=== PATIENT | male | born 1990 | race African-American/Black ===

== ENCOUNTER 2016-09-22 22:31 | Emergency (ER) | payer SELFPAY ==
[~2016-09-22] VITALS: Ht 165.1 cm; Wt 49.9 kg
[2016-09-22 22:41] VITALS: BP 109/74; PULSE 89; RESP 16; TEMP 98.2; O2SAT 97
[2016-09-22] MEDS ORDERED: AZITHROMYCIN PWD FOR SUSP 1 GM PACKET PO ONE (23:15)
[2016-09-22] MEDS ORDERED: LIDOCAINE HCL 1% 50 ML VIAL XX ONE (23:15)
[2016-09-22] MEDS ORDERED: cefTRIAXone 250 MG VIAL IM ONE (23:15)
[2016-09-22] MEDS ORDERED: ZITHTAB PO (23:16)
--- NOTE | 2016-09-22 23:16 | PD ---
HPI Chief Complaint: Complaint Time Seen by Provider: 22:54 Travel History International Travel<30 days: No Contact w/Intl Traveler<30days: No Traveled to known affect area: No History of Present Illness HPI 26-year-old male here for evaluation of penile discharge and cough. Patient reports upper respiratory symptoms with cough productive of yellowish sputum for the last 2 weeks. For the last week he has noted whitish penile discharge. He has sex with men and does not use protection for oral sex, however claims to use protection for all other types of sex. He denies having genital lesions. No testicular or scrotal pain. No fevers or chills. PFSH Past Medical History Asthma: Yes ( A CHILD) Diminished Hearing: No Immunizations Current: Yes Influenza Vaccination: No Past Surgical History Surgical History: No Previous Surgery Social History Alcohol Use: Yes (OCC) Tobacco Use: Yes (1PPD) Substance Use: Yes (MARRIJUANA AND CAYETANO'S) Allergies-Medications (Allergen,Severity, Reaction): Coded Allergies: No Known Allergies (Unverified , 09/22/16) Reported Meds & Prescriptions Reported Meds & Active Scripts Active No Active Prescriptions or Reported Medications Review of Systems Except as stated in HPI: all other systems reviewed are Neg Physical Exam Narrative GENERAL: Well-developed, well-nourished, comfortable, no acute distress. SKIN: Focused skin assessment warm/dry. No rash. HEAD: Atraumatic. Normocephalic. EYES: Pupils equal and round. No scleral icterus. No injection or drainage. ENT: Mucous membranes pink and moist. NECK: Trachea midline. No JVD. CARDIOVASCULAR: Regular rate and rhythm. RESPIRATORY: No accessory muscle use. Clear to auscultation. Breath sounds equal bilaterally. GASTROINTESTINAL: Abdomen soft, non-tender, nondistended. : Normal external genitalia. No scrotal masses or tenderness. No ulcerative lesions. No gross penile discharge. MUSCULOSKELETAL: No obvious deformities. No clubbing. No cyanosis. No edema. NEUROLOGICAL: Awake and alert. No obvious cranial nerve deficits. Motor grossly within normal limits. Normal speech. PSYCHIATRIC: Appropriate mood and affect; insight and judgment normal. Data Data Last Documented VS Vital Signs Date Time Temp Pulse Resp B/P Pulse Ox O2 Delivery O2 Flow Rate FiO2 09/22/16 22:52 88 16 09/22/16 22:41 98.2 109/74 97 Orders Gc And Chlamydia Pcr (09/22/16 23:05) Azithromycin Powd Pack (Zithromax Powd P (09/22/16 23:15) Ceftriaxone Inj (Rocephin Inj) (09/22/16 23:15) Lidocaine 1% Inj (50 Ml) (Xylocaine 1% I (09/22/16 23:15) MDM Medical Decision Making Medical Screen Exam Complete: Yes Emergency Medical Condition: Yes Differential Diagnosis STI, URI, pneumonia, bronchitis, UTI, cystitis, testicular torsion not likely Narrative Course Vital signs show heart rate 89, blood pressure 109/74, pulse ox 97% on room air , oral temp of 98.2F. See history of present illness. Patient was empirically treated for gonorrhea and chlamydia. He will be started on a Z-Yehuda for his upper respiratory symptoms. He will be given the information to the [facility] to follow up with this week. He was informed on when to return to the emergency department. He will follow-up with his urine results. Diagnosis Primary Impression: Penile discharge Additional Impression: Cough Referrals: [facility] 3 days Additional Instructions: Follow-up with [facility] this week. Return to the emergency department for worsening symptoms or any other concerns. Scripts Azithromycin (Zithromax Z-Yehuda)250 Mg [id number] Mg PO DIRECTED #1 DSPK Ref 0 500 MG (2 tabs) day 1, then 1 tab days 2-5. Prov:dEson Zamora MD 09/22/16 Disposition: 01 DISCHARGE HOME Condition: Stable Edson Zamora MD September 22, 2016 23:16
[2016-09-22 23:45] VITALS: BP 102/63; PULSE 86; RESP 16; O2SAT 98
[2016-09-23 12:54] LABS: CHLAMYDIA PCR NOT DETECTED (NOT DETECT); NEISSERIA PCR NOT DETECTED (NOT DETECT)
== END 2016-09-22 23:55 | disposition home or self-care (01) ==
LOC: PHED 22:31
DX: R36.9 Urethral discharge, unspecified (principal); R05 Cough; F17.210 Nicotine dependence, cigarettes, uncomplicated; F12.10 Cannabis abuse, uncomplicated; F15.20 Other stimulant dependence, uncomplicated
CPT/HCPCS: 87491; 87591; 96372; 99284; J0696